=== PATIENT | female | born 1980 | race Caucasian/White ===

== ENCOUNTER → 2019-10-23 | Outpatient (CLI) | payer OTHER, SELFPAY ==
--- NOTE | 2019-10-23 | FLU_PTH ---
PATIENT: MIKO GALAVIZ LOC: [facility] U#:[id number] AGE/SX: 39/F ROOM: RE10/23/[address]: Dr. Mariana Harrison MD : [id number] BED: DIS: 10/23/2019 SPEC #: [id number] RECD: 10/23/19 18:12 STATUS: ELISABET JAMES #: [id number] ALVERTO: 10/23/19 00:[address]: Mariana Harrison DEPT: CYTOLOGY RECD BY: Manpreet Reyna ENTERED: 10/24/19 08:09 SP TYPE: Fluid OTHR DR: Dr. Damion Artis MD Tissues: Urine Procedures: Special Stain Group II Special Stain Group I GMS Stain (control) Cytospin Fluid HEADER OPERATION: Not noted PRE-OP DIAGNOSIS: Gross hematuria TISSUE SUBMITTED: Urine for cytology DIAGNOSIS CYTOLOGY Urine for cytology (cytospin): Negative for malignant cells. Special stain for fungi is positive for organisms (yeast and pseudohyphae) consistent with Kristen species; matched control is appropriate. See comment. SJ:ratna 10/25/19 COMMENT The specimen predominantly consists of squamous cells. Fungal organisms could represents contamination from vaginal discharge. Clinical correlation and appropriate follow up are necessary. CYTOLOGY STUDY Slides are reviewed. CYTOLOGY GROSS Received is 50 ml of yellow clear fluid labeled with the patient's name and and designated per the requisition as urine. Submitted for cytology preparation. / ratna 10/24/19 TC:5 CPT: 26471, 99110
[2019-10-23 18:13] LABS: Cytology, Body Fluid / CSF SEE PATHOLOGY REPORT
== END | disposition home or self-care (01) ==
PROVIDERS: Referring Provider Urology; Visit Provider Urology
DX: R31.0 Gross hematuria (principal)
CPT/HCPCS: 88108; 88305; 88312; 88313